=== PATIENT | female | born 1960 | race African-American/Black ===

== ENCOUNTER 2021-03-04 03:46 | Emergency (ER) | payer OTHER ==
[2021-03-04 04:16] LABS: BASOPHIL 0.3 % (0-2); EOSINOPHIL 0.6 % (0-5); HCT 43.5 % (37.0-47.0); MCH 26.8 pg (25.0-31.0); MCHC 32.2 g/dL (32.0-36.0); MCV 83.2 fL (78.0-100.0); MONOCYTE 4.1 % (0-12); MPV 9.6 fL (6.0-9.5); NEUTROPHIL 89.7 % (41-80); NRBC 0; PLT 324 K/uL (150-400); RBC 5.23 M/uL (4.20-5.40); RDW 15.6 % (11.5-14.0); WBC 14.1 K/uL (4.0-10.5)
[2021-03-04 04:17] LABS: BILIRUBIN 1+ mg/dL (NEGATIVE); BLOOD TRACE-INTACT Ery/uL (NEGATIVE); CLARITY CLOUDY (CLEAR); COLOR YELLOW (YELLOW); GLUCOSE (U) NORMAL (NORMAL); LEUKOCYTES NEGATIVE Leu/uL (NEGATIVE); NITRITE NEGATIVE (NEGATIVE); PROTEIN 1+ mg/dL (NEGATIVE); SPECIFIC GRAVITY >=1.030 (1.001-1.030); UROBILINOGEN 0.2 mg/dL (0.2-1.0)
[2021-03-04 04:25] LABS: AMORPHOUS URATES CRYSTALS LARGE; BACTERIA TRACE; CALCIUM OXALATE CRYSTALS TRACE
[2021-03-04 04:40] LABS: ALKALINE PHOSHATASE 91 U/L (46-116); ALT 23 U/L (14-59); AST 12 U/L (15-37); BILIRUBIN - DIRECT <0.05 mg/dL (0.00-0.20); BILIRUBIN - TOTAL 0.3 mg/dL (0.2-1.0); BUN 19 mg/dL (7-18); BUN/CREAT RATIO (CALC) 29.2 RATIO; CHLORIDE 107 mmol/L (98-107); CO2 (BICARBONATE) 29 mmol/L (21-32); CREATININE 0.65 mg/dL (0.51-0.95); GLOBULIN (CALCULATION) 4.2 g/dL; GLUCOSE 171 mg/dL (74-106); LIPASE 210 U/L (73-393); POTASSIUM 3.7 mmol/L (3.5-5.1); TOTAL PROTEIN 8.2 g/dL (6.4-8.2)
[2021-03-04] MEDS ORDERED: ONDANSETRON ODT4 MG PO (06:40)
== END 2021-03-04 06:55 | disposition home or self-care (01) ==
LOC: FER 03:46
PROVIDERS: Student in an Organized Health Care Education/Training Program
DX: B34.9 Viral infection, unspecified (principal); I10 Essential (primary) hypertension; Z88.0 Allergy status to penicillin; Z91.041 Radiographic dye allergy status; Z79.899 Other long term (current) drug therapy
CPT/HCPCS: 36415; 80048; 80076; 81001; 83690; 84145; 85025; J0780; J1200; J2405; J7030